=== PATIENT | male | born 1965 | race Caucasian/White ===

== ENCOUNTER 2024-03-27 09:44 | Emergency (ER) | payer OTHER, SELFPAY ==
[2024-03-27 09:52] VITALS: BP 160/99
--- NOTE | 2024-03-27 10:31 | ED.MUSCINJ ---
HPI-Injury
General
Chief Complaint: Musculo-Skeletal Complaint
Source: patient
Exam Limitations: none
Time Seen by Provider: 03/27/24 10:20
History of Present Illness-Injury
Initial Injury comments:
58-year-old male otherwise quite healthy presents with left knee discomfort. He started running last week. The day after running he felt a pop in his left knee followed by instability. He also felt something similar yesterday and since then he
has been having difficulty bearing weight. The pain is localized mainly to the posterior lateral aspect of the knee. He does note a catching or clicking sensation. He also notes instability. No injury otherwise. No other complaints
Past History
Past History
ED Past Medical History: HTN and Hypercholesterolemia
ED Past Surgical History: None
Social History
Tobacco: Non-smoker
Alcohol: None
Drug: None
Phy Exam
Physical Exam
Physical Exam:
General: Well-appearing male no acute respiratory distress
HEENT: Normocephalic atraumatic
Musculoskeletal exam: Left knee without effusion able to straight leg raise full extension flexion is beyond 90 degrees. He is tender over the posterior lateral joint line. There is increased pain with rotation of the tibia. The ligaments are
stable otherwise
Skin is intact without laceration
Injury Course
Orders/Labs/Results
Orders:
Orders
03/27/24 09:59
Knee, Left 4 or More Views [CR Knee - Left 4 Or More View*] Urgent
Comment:
Reason For Exam: injury/pain
03/27/24 10:31
Knee Immobilizer Left-Treatmen ONCE
MDM/Problems Addressed
Differential Diagnosis Includes:
Left knee pain atraumatic in nature. Suspect strain versus sprain possible meniscus injury. Will x-ray left knee to evaluate for any fracture dislocation or arthritis
I personally visualized x-rays of the knee which demonstrate no obvious acute finding. Knee immobilizer was applied he was advised follow-up with orthopedics for further evaluation
*Critical Care Note
Total Time (30-74mins, 75-104mins- exclusive of procedures): Not Applicable
ED Attending Note
-
Portions of this chart may have been created with voice recognition software.� Occasional wrong word or��sound alike� substitutions may have occurred due to the inherent limitations of voice recognition software.
Discharge Plan
Departure
Patient Disposition: Home (Routine Discharge)
Date of Disposition: 03/27/24
Time of Disposition: 10:33
Patient with high blood pressure during this ER visit?: No
Discharge Problem:
Knee sprain
Instructions: Muscle and Bone Pain (DC)
Prescriptions:
No Action
atorvastatin 10 MG tablet
10 mg PO DAILY
enalapril maleate 20 MG tablet
20 mg PO DAILY
nifedipine 60 MG tablet extended release
60 mg PO DAILY
Referrals:
Perry Shelton MD [Active] -
Activity Restrictions/Additional Instructions:
Use brace for support when ambulating. Continue with ibuprofen or Motrin for pain. Follow-up with orthopedics for further evaluation
Interventions
Interventions:
*Risk Screen - Suicide Last Done: 03/27/24 09:52
*General Assessment Last Done: 03/27/24 09:49
*Neglect/Abuse Screening Last Done: 03/27/24 09:52
*ED COVID-19 Vaccine History Last Done: 03/27/24 09:52
Discharge Date and Time
Print Language: UKRAINIAN
== END 2024-03-27 11:18 | disposition home or self-care (01) ==
LOC: EMR 09:44
PROVIDERS: EMERGENCY PHYSICIAN Emergency Medicine; FAMILY PHYSICIAN Student in an Organized Health Care Education/Training Program
DX: S83.92XA Sprain of unspecified site of left knee, initial encounter (principal); X58.XXXA Exposure to other specified factors, initial encounter; Y93.02 Activity, running; I10 Essential (primary) hypertension; E78.00 Pure hypercholesterolemia, unspecified
CPT/HCPCS: 99283; 73564